=== PATIENT | female | born 1960 | race Caucasian/White ===

== ENCOUNTER 2019-05-14 09:40 | Outpatient (REF) | payer MEDICARE, SELFPAY ==
[2019-05-14 19:22] LABS: Calculated LDL 60; Cholesterol 143 mg/dL (50-200); HDL Cholesterol 45 mg/dL (40-60); Triglyceride 193 mg/dL (30-150)
== END 2019-05-14 10:00 ==
LOC: LBN 09:40
PROVIDERS: PCP Nurse Practitioner Family; Visit Provider Internal Medicine Rheumatology
DX: I10 Essential (primary) hypertension (principal); E78.5 Hyperlipidemia, unspecified; L40.50 Arthropathic psoriasis, unspecified; L40.9 Psoriasis, unspecified; M35.00 Sjogren syndrome, unspecified; M31.6 Other giant cell arteritis; R07.9 Chest pain, unspecified; Z79.899 Other long term (current) drug therapy; Z79.52 Long term (current) use of systemic steroids
CPT/HCPCS: 80061; 83721

== ENCOUNTER 2019-06-18 09:27 | Outpatient (CLI) | payer MEDICARE, SELFPAY ==
--- NOTE | 2019-06-18 09:19 | DI.RAD_ITS ---
SYMPTOM/DIAGNOSIS: B/L HIP PAIN BILATERAL HIPS: No fracture or dislocation is seen. The hip joint spaces are well maintained. There is no significant acetabular spurring. There is minimal spurring at the greater trochanters. Spurring is noted at the S-I joints, left greater than right. IMPRESSION: Degenerative changes of the S-I joints. The hips show no significant degenerative change.
== END 2019-06-18 09:47 ==
PROVIDERS: PCP Nurse Practitioner Family; Referring Provider Nurse Practitioner Family; Visit Provider Orthopaedic Surgery
DX: M25.551 Pain in right hip (principal); M25.552 Pain in left hip; M51.06 Intervertebral disc disorders with myelopathy, lumbar region; M16.11 Unilateral primary osteoarthritis, right hip; L40.50 Arthropathic psoriasis, unspecified
CPT/HCPCS: 73521; 99202; 99203

== ENCOUNTER 2019-06-22 08:06 | Day surgery (SDC) | payer MEDICARE, SELFPAY ==
[2019-06-22 08:52] VITALS: BP 118/67; PULSE 64; RESP 16; TEMP 36.8; O2SAT 98
--- NOTE | 2019-06-22 09:55 | DI.RAD_ITS ---
SYMPTOMS/DIAGNOSIS: RIGHT HIP OSTEOARTHRITIS RIGHT HIP IN THE OR: Fluoroscopy Time: 1.74 seconds/8.5 mGy A single fluoroscopic image shows the right hip. There is a needle overlying the right femoral neck. Please refer to the procedure report for complete details.
[2019-06-22] MEDS: methylPREDNISolone ACETATE 80 MG/ML VIAL (11:25)
--- NOTE | 2019-06-22 11:34 | PDOC.DSDIS_ITS ---
Discharge Plan Disposition Patient Disposition: HOME Condition: Good Discharge Details Reason For Visit: OA (R) HIP Attending Provider: Chung Pham Primary Care Provider: Becky Vides Home Meds and New Rx's Prescriptions: Continued Humira 40 mg/0.8 mL Syringe Kit 50 mg SUBCUT Q2W RF: 0 fluticasone propionate 50 mcg/actuation [place],Suspension 1 spray INTRANASAL BID RF: 0 pramipexole 0.25 mg Tablet 0.25 mg PO QHS RF: 0 lisinopril 10 mg Tablet 10 mg PO DAILY RF: 0 metoprolol succinate 100 mg Tablet Extended Release 24 Hr 100 mg PO DAILY RF: 0 betamethasone dipropionate 0.05 % Cream 1 applic TOPICAL DAILY PRNRF: 0 oxycodone-acetaminophen 5-325 mg Tablet 1 tab PO Q4H PRNRF: 0 Dulera 200-5 mcg/actuation Hfa Aerosol Inhaler 2 puff INHALATION BID RF: 0 oxycodone 5 mg Tablet 5 mg PO BID PRNRF: 0 duloxetine 60 mg Capsule,Delayed Release(Dr/Ec) 60 mg PO DAILY RF: 0 omeprazole 20 mg Capsule,Delayed Release(Dr/Ec) 20 mg PO BID RF: 0 trazodone 100 mg Tablet 200 mg PO QHS RF: 0 montelukast 10 mg Tablet 10 mg PO QHS RF: 0 fexofenadine [Evette Allergy] 180 mg Tablet 180 mg PO DAILY RF: 0 atorvastatin 40 mg Tablet 40 mg PO QHS RF: 0 methotrexate sodium 2.5 mg Tablet 5 mg PO QWEEK RF: 0 olopatadine [Patanol] 0.1 % Drops 1 drp OPHTHALMIC (EYE) BID PRNRF: 0 benzonatate [Tessalon Perles] 100 mg Capsule 100 mg PO BID PRNRF: 0 omega 0-xbs-rlx-fish oil [Fish Oil] 1,000 mg (120 mg-180 mg) Capsule 1 cap PO DAILY RF: 0 folic acid 1 mg Tablet 1 mg PO DAILY RF: 0 Calcium 600 + D(3) 600 mg calcium- 200 unit Capsule 1 cap PO RF: 0 Geritol Complete 16 mg iron- 0.38 mg Tablet 1 tab PO RF: 0 Vit C(ascorb.calcium)(mv-mins) 1,000 mg Powder Effervescent In Packet 1 mg PO RF: 0 lysine 1,000 mg Tablet 1,000 mg PO DAILY RF: 0 Discharge Instructions Additional Instructions: Rest your R hip for 48 hours to allow the medicine I injected into your hip time to be absorbed by the hip joint. Resume activities as tolerated on Sat. Follow up with in one month. Referrals: Chung Pham MD [ [facility] STAFF PHYSICIAN] - (f/u in one month.) Activity:: Activity as Tolerated Diet:: As Tolerated Discharge Orders Discharge Orders: Discharge Order (Routine); Ordered 06/22/19 Ordered By: Chung Pham DS: Diagnosis Discharge Diagnosis (1) Inflammatory osteoarthritis: Status: Chronic
--- NOTE | 2019-06-22 14:15 | ROE_ITS ---
DATE OF PROCEDURE: June 22, 2019 PREOPERATIVE DIAGNOSIS: Probably psoriatic arthritis, right hip. POSTOPERATIVE DIAGNOSIS: Same. PROCEDURE: C-arm guided injection of steroids into the right hip. ANESTHESIA: Local. SURGEON: Chung Pham M.D. INDICATIONS: This is a 58-year-old white female with known psoriasis who is complaining of severe bi lateral hip pain. The right is more painful than the left. Plain x-rays only show mild degenerative changes in her hips. This is not unusual for arthritis caused by connective tissue diseases. The changes are often mild and subtle despite severe pain. I have discussed this fully with the patient. My recommendation is she have an interarticular cortisone injection. If the pain is relieved by th e injection of the anesthetic, that would be confirmation that the hip is the source of her pain. Th e injection also may provide therapeutic benefit by alleviating her pain for an extended period of ti me. If she cannot get significant relief for an extended period of time, she would be a candidate fo r a hip replacement. The risks and complications of the procedure were explained to the patient in d etail and she wished to have me proceed as soon as possible. She also has requested that if she gets good relief from the right side, would like to proceed in having an injection on the left side. PROCEDURE: The patient was taken to the Operating Room on 06/22/19 and was placed supine on the opera ting table. Using the C-arm image intensifier, I placed a ringed forceps just above the inguinal cre ase and centered over the femoral head. I then marked the skin around the ringed forceps. I prepped the skin with alcohol and then placed an 18 gauge needle through the marked area and advanced the 18 gauge spinal needle until I encountered bone. The C-arm image intensifier was then used to confirm that the spinal needle was in the femoral head. I then injected through the spinal needle into the h ip joint with 15 cc's of 0.5% Marcaine with an epinephrine solution and 80 mg of Depo-Medrol. I low quincy the spinal needle and applied pressure to the puncture wound. I then passively moved her right h ip in flexion and extension and internal and external rotation for a couple of minutes to distribute the medication. She reported dramatic relief of pain and much improved motion of her hip. She was d ischarged to the Day Surgery Unit in good condition. The patient was given instructions to rest her right hip for the next 48 hours. She will take ibupro fen of Tylenol as needed for pain. She may resume activities as tolerated on Saturday. She should follow-up in my office in one month.
== END 2019-06-22 12:08 | disposition home or self-care (01) ==
PROVIDERS: PCP Nurse Practitioner Family; Visit Provider Orthopaedic Surgery
PROC: (CPT 20610; principal; 2019-06-22 09:45)
DX: M25.551 Pain in right hip (principal); M25.552 Pain in left hip; L40.9 Psoriasis, unspecified
CPT/HCPCS: 20610; 77002; 73501; J1040

== ENCOUNTER → 2019-07-21 09:02 | Outpatient (BNVA) | payer MEDICARE, SELFPAY | PROVIDERS: PCP Nurse Practitioner Family; Referring Provider Nurse Practitioner Family; Visit Provider Orthopaedic Surgery | DX: M25.551 Pain in right hip (principal); Z98.890 Other specified postprocedural states; L40.9 Psoriasis, unspecified; I10 Essential (primary) hypertension | CPT/HCPCS: 99213 ==

== ENCOUNTER → 2019-07-28 10:16 | Outpatient (BNVA) | payer MEDICARE, SELFPAY | PROVIDERS: PCP Nurse Practitioner Family; Referring Provider Nurse Practitioner Family; Visit Provider Student in an Organized Health Care Education/Training Program | DX: M75.51 Bursitis of right shoulder (principal); M75.52 Bursitis of left shoulder; M75.101 Unspecified rotator cuff tear or rupture of right shoulder, not specified as traumatic; M75.102 Unspecified rotator cuff tear or rupture of left shoulder, not specified as traumatic; R22.32 Localized swelling, mass and lump, left upper limb; M25.511 Pain in right shoulder; M25.512 Pain in left shoulder; M75.21 Bicipital tendinitis, right shoulder; M75.22 Bicipital tendinitis, left shoulder; I10 Essential (primary) hypertension | CPT/HCPCS: 99204; 99215 ==

== ENCOUNTER 2019-08-04 00:14 | Outpatient (CLI) | payer MEDICARE, SELFPAY ==
--- NOTE | 2019-08-04 13:54 | DI.MRI_ITS ---
SYMPTOMS/DIAGNOSIS: PRIOR SYMPTOMS, PERSISTENT PAIN AND WEAKNESS, M25.511 MRI OF THE RIGHT SHOULDER: No plain films are available for comparison. The exam is extremely limited due to patient body habitus. There is limited resolution and poor fat suppression. There is metallic artifact related to previous rotator cuff surgery. There is apparent full-thickness tear with retraction of the supraspinatus tendon. The infraspinatus, subscapularis and biceps tendons appear grossly intact. The labrum is not well seen. The marrow signal appears normal. IMPRESSION: Severely limited exam due to patient body habitus. A full- thickness tear with retraction of the supraspinatus tendon is suspected.
[2019-08-04 15:07] LABS: Estimated GFR 51.38 (mL/min/1.73m2)
== END 2019-08-04 00:34 ==
PROVIDERS: PCP Nurse Practitioner Family; Visit Provider Student in an Organized Health Care Education/Training Program
DX: M25.511 Pain in right shoulder (principal); M75.101 Unspecified rotator cuff tear or rupture of right shoulder, not specified as traumatic; Z98.890 Other specified postprocedural states
CPT/HCPCS: 73221; 82565

== ENCOUNTER 2019-08-11 00:53 | Outpatient (CLI) | payer OTHER, MEDICARE, SELFPAY ==
[2019-08-11] MEDS: Normal Saline Flush 10 ML SYR IVP (09:22)
[2019-08-11] MEDS: Gadoterate meglumine 20 ML VIAL IVP (09:23)
--- NOTE | 2019-08-11 10:10 | DI.MRI_ITS ---
CLINICAL HISTORY: PRIOR ROTATOR CUFF SYMPTOMS, PAIN, WEAKNESS, LT ARM MASS, M25.512 TECHNIQUE: Left upper joint MR without and with contrast was performed. COMPARISON: No exams were available for comparison FINDINGS: Examination was very limited technically due to the patient's body habitus and inability to use extre mity coil in this patient. The patient reportedly has question left arm mass. No mass identified on this study and no gross enhancement seen. However I would not be confident in excluding a mass on t he basis of this examination and if there is high clinical suspicion of a mass, additional evaluatio n with CT should be considered. IMPRESSION:
== END 2019-08-11 01:13 ==
PROVIDERS: PCP Nurse Practitioner Family; Visit Provider Student in an Organized Health Care Education/Training Program
DX: M75.122 Complete rotator cuff tear or rupture of left shoulder, not specified as traumatic (principal); M75.121 Complete rotator cuff tear or rupture of right shoulder, not specified as traumatic; R22.32 Localized swelling, mass and lump, left upper limb; I10 Essential (primary) hypertension; M75.22 Bicipital tendinitis, left shoulder; M75.21 Bicipital tendinitis, right shoulder
CPT/HCPCS: 99215; 73223

== ENCOUNTER 2019-09-15 15:00 | Outpatient (CLI) | payer MEDICARE, SELFPAY ==
--- NOTE | 2019-09-15 14:40 | DI.RAD_ITS ---
EXAM: XR CERVICAL SP MOLINA TRAUMA 2-3V INDICATION: CERVICAL RADICULOPATHY. COMPARISON: No exams were available for comparison TECHNIQUE: 2D digital imaging was performed. FINDINGS: There is no evidence of fracture. The alignment appears normal. There is mild narrowing of the C5-6 disc space and moderate narrowing and endplate osteophytes at C6-7. Facet degenerative changes are seen. There is no prevertebral soft tissue swelling. The airway appears intact. IMPRESSION: Degenerative changes. No acute abnormality.
== END 2019-09-15 15:20 ==
PROVIDERS: PCP Nurse Practitioner Family; Visit Provider Student in an Organized Health Care Education/Training Program
DX: M54.12 Radiculopathy, cervical region (principal); M50.322 Other cervical disc degeneration at C5-C6 level; R22.32 Localized swelling, mass and lump, left upper limb; M75.122 Complete rotator cuff tear or rupture of left shoulder, not specified as traumatic; M75.121 Complete rotator cuff tear or rupture of right shoulder, not specified as traumatic
CPT/HCPCS: 99214; 72040

== ENCOUNTER 2019-09-21 01:52 | Outpatient (CLI) | payer MEDICARE, SELFPAY ==
--- NOTE | 2019-09-21 15:34 | DI.MRI_ITS ---
EXAM: MR CERVICAL SPINE WO CLINICAL HISTORY: cervical radiculopathy M54.12. TECHNIQUE: Multiplanar multisequence MRI was performed. COMPARISON: No exams were available for comparison FINDINGS: There is normal signal in the spinal cord. No evidence of tonsillar ectopia is present. At C7-T1, there is no focal disc herniation central spinal canal or neural foraminal stenosis. At C6-C7, there is prominence of the osteophyte-disc complex. There is mild narrowing of the central spinal canal. Mild narrowing of the neural foramen is seen bilaterally. At C5-C6, there is no focal disc herniation, central spinal canal or neural foraminal stenosis. At C4-5, C3-C4, and C2-C3, there is no evidence of focal disc herniation, central spinal canal, or ne ural foraminal stenosis. The study is limited due to patient body habitus. IMPRESSION: Degenerative changes at C6-C7 causing mild narrowing of the central spinal canal and neural foramen b ilaterally.
== END 2019-09-21 02:12 ==
PROVIDERS: PCP Nurse Practitioner Family; Visit Provider Student in an Organized Health Care Education/Training Program
DX: M54.12 Radiculopathy, cervical region (principal); M47.22 Other spondylosis with radiculopathy, cervical region
CPT/HCPCS: 72141

== ENCOUNTER → 2019-09-30 13:49 | Outpatient (BNVA) | payer MEDICARE, SELFPAY | PROVIDERS: PCP Nurse Practitioner Family; Referring Provider Nurse Practitioner Family; Visit Provider Student in an Organized Health Care Education/Training Program | DX: M75.41 Impingement syndrome of right shoulder (principal); M75.42 Impingement syndrome of left shoulder; M75.22 Bicipital tendinitis, left shoulder; M75.21 Bicipital tendinitis, right shoulder; R22.32 Localized swelling, mass and lump, left upper limb; M75.51 Bursitis of right shoulder; M75.52 Bursitis of left shoulder; M75.121 Complete rotator cuff tear or rupture of right shoulder, not specified as traumatic; M79.7 Fibromyalgia; M35.3 Polymyalgia rheumatica | CPT/HCPCS: 99215 ==

== ENCOUNTER 2019-10-27 14:37 | Outpatient (CLI) | payer MEDICARE, SELFPAY ==
--- NOTE | 2019-10-27 14:49 | DI.RAD_ITS ---
EXAM: XR SHOULDER RT COMPLETE 2+V INDICATION: right shoulder pain. COMPARISON: No exams were available for comparison TECHNIQUE: 2D digital imaging was performed. FINDINGS: There are degenerative changes seen at the acromioclavicular joint. The glenohumeral joint appears f airly well maintained. Mild degenerative changes are seen at the greater tuberosity. There is an en thesophyte at the lateral aspect of the acromion. No acute fracture or dislocation is present. The soft tissues are unremarkable. IMPRESSION: Mild degenerative changes of the right shoulder.
--- NOTE | 2019-10-27 14:52 | DI.RAD_ITS ---
EXAM: XR SHOULDER LT COMPLETE 2+V INDICATION: left shoulder pain. COMPARISON: XR SHOULDER RT COMPLETE 2+V from 10/27/2019 TECHNIQUE: 2D digital imaging was performed. FINDINGS: Mild degenerative changes are seen at the acromioclavicular joint. The glenohumeral joint appears we ll maintained. The bones are intact and normally mineralized. The soft tissues are unremarkable. IMPRESSION: Mild degenerative changes of the acromioclavicular joint.
--- NOTE | 2019-10-27 15:04 | DI.RAD_ITS ---
EXAM: XR JOINT SURVEY 1V INDICATION: left SC joint discomfort. COMPARISON: No exams were available for comparison TECHNIQUE: 2D digital imaging was performed. FINDINGS: Two AP lordotic views were performed. The sternoclavicular joints are not well visualized. There is no evidence of fracture or gross evidence of malalignment. IMPRESSION: Limited exam. No gross evidence of fracture.
== END 2019-10-27 14:57 ==
PROVIDERS: PCP Nurse Practitioner Family; Referring Provider Nurse Practitioner Family; Visit Provider Student in an Organized Health Care Education/Training Program
DX: M75.22 Bicipital tendinitis, left shoulder; M35.3 Polymyalgia rheumatica; M75.41 Impingement syndrome of right shoulder; M75.42 Impingement syndrome of left shoulder; M75.121 Complete rotator cuff tear or rupture of right shoulder, not specified as traumatic; M75.122 Complete rotator cuff tear or rupture of left shoulder, not specified as traumatic; R22.32 Localized swelling, mass and lump, left upper limb
CPT/HCPCS: 99214; 73030; 77073

== ENCOUNTER 2019-12-02 09:54 | Outpatient (CLI) | payer MEDICARE, SELFPAY | END 2019-12-02 10:14 | PROVIDERS: PCP Nurse Practitioner Family; Visit Provider Student in an Organized Health Care Education/Training Program | DX: M75.41 Impingement syndrome of right shoulder (principal); M75.42 Impingement syndrome of left shoulder; M75.22 Bicipital tendinitis, left shoulder; M75.21 Bicipital tendinitis, right shoulder; R22.32 Localized swelling, mass and lump, left upper limb; M75.51 Bursitis of right shoulder; M75.52 Bursitis of left shoulder; M75.121 Complete rotator cuff tear or rupture of right shoulder, not specified as traumatic; M75.122 Complete rotator cuff tear or rupture of left shoulder, not specified as traumatic; M79.7 Fibromyalgia; M35.3 Polymyalgia rheumatica; Z79.899 Other long term (current) drug therapy | CPT/HCPCS: 99214 ==

== ENCOUNTER 2019-12-10 06:10 | Day surgery (SDC) | payer MEDICARE, SELFPAY ==
[2019-12-02 10:13] VITALS: BP 105/68; PULSE 82; O2SAT 98
[2019-12-10] VITALS (7 sets, daily range): BP systolic 92–130; BP diastolic 39–66; PULSE 81–87; RESP 15–19; TEMP 36.6; O2SAT 96–100
[2019-12-10] MEDS: Lactated Ringers 1,000 ML 100 ML IV (06:39)
[2019-12-10] MEDS: Bupivacaine 0.5% Pres-Free 30 ML VIAL (07:24)
[2019-12-10] MEDS: Bupivacaine LIPOSOME/PF 133 MG/10 ML VIAL IJ (07:25)
[2019-12-10] MEDS: ceFAZolin 3,000 MG in Normal Saline 100 ML 200 MG IVPB (07:58)
[2019-12-10] MEDS: EPINEPHrine 30 MG/30 ML VIAL (09:48)
--- NOTE | 2019-12-10 10:17 | W.PM.DSUDISC ---
Discharge Plan Disposition Patient Disposition: HOME Condition: Stable Discharge Details Reason For Visit: RCT,LHB TENDINNOP,BURSITIS,IMPINGEMENT Attending Provider: Nabeel Etienne Primary Care Provider: Becky Vides Home Meds and New Rx's Prescriptions: New aspirin 81 mg tablet,delayed release (DR/EC) 81 mg PO DAILY 14 Days Qty: 14 RF: 0 ondansetron 4 mg tablet,disintegrating 4 mg PO Q6H PRN (Reason: nausea or vomiting) Qty: 5 RF: 0 oxycodone 5 mg tablet 5 - 10 mg PO Q4H PRN (Reason: moderate to severe pain) Qty: 22 RF: 0 Continued diazepam 5 mg tablet 5 mg PO ONCE PRN (Reason: anxiety) Qty: 2 RF: 0 diclofenac sodium 1 % gel 2 gm TP QID RF: 0 Humira 40 mg/0.8 mL Syringe Kit 50 mg SUBCUT Q2W RF: 0 fluticasone propionate 50 mcg/actuation [place],Suspension 1 spray INTRANASAL BID RF: 0 pramipexole 0.25 mg Tablet 0.25 mg PO QHS RF: 0 betamethasone dipropionate 0.05 % Cream 1 applic TOPICAL DAILY PRNRF: 0 Dulera 200-5 mcg/actuation Hfa Aerosol Inhaler 2 puff INHALATION BID RF: 0 duloxetine 60 mg Capsule,Delayed Release(Dr/Ec) 60 mg PO DAILY RF: 0 omeprazole 20 mg Capsule,Delayed Release(Dr/Ec) 20 mg PO BID RF: 0 trazodone 100 mg Tablet 200 mg PO QHS RF: 0 montelukast 10 mg Tablet 10 mg PO QHS RF: 0 fexofenadine [Evette Allergy] 180 mg Tablet 180 mg PO DAILY RF: 0 atorvastatin 40 mg Tablet 40 mg PO QHS RF: 0 olopatadine [Patanol] 0.1 % Drops 1 drp OPHTHALMIC (EYE) BID PRNRF: 0 benzonatate [Tessalon Perles] 100 mg Capsule 100 mg PO BID PRNRF: 0 Calcium 600 + D(3) 600 mg calcium- 200 unit Capsule 1 cap PO DAILY RF: 0 Geritol Complete 16 mg iron- 0.38 mg Tablet 1 tab PO DAILY RF: 0 Vit C(ascorb.calcium)(mv-mins) 1,000 mg Powder Effervescent In Packet 1 mg PO DAILY RF: 0 lysine 1,000 mg Tablet 1,000 mg PO DAILY RF: 0 methotrexate sodium 2.5 mg tablet 7.5 mg PO QWEEK RF: 0 folic acid 1 mg tablet 3 mg PO DAILY RF: 0 meloxicam 15 mg Tablet 15 mg PO DAILY RF: 0 Discontinued diazepam [Valium] 5 mg tablet 5 mg PO ONCE PRN (Reason: Claustrophobia) Qty: 2 RF: 0 oxycodone-acetaminophen 5-325 mg Tablet 1 tab PO Q4H PRNRF: 0 oxycodone 5 mg Tablet 5 mg PO BID PRNRF: 0 Discharge Instructions Additional Instructions: Surgery: Shoulder arthroscopy with extensive debridement, biceps tenotomy, revision subacromial decompression, removal of hardware, and distal clavicle excision Activity: You may use your arm for activities of daily living. Encourage early stretching and range of motion in all directions. No heavy lifting away from body or overhead for 6-8 weeks. A physical therapy prescription will be provided separately today. Prescriptions: Aspirin 81 mg take 1 daily to prevent a blood clot for 2 weeks Oxycodone 5 mg take 1-2 every 4-6 hours as needed for severe pain You may use [id number] Tylenol (acetaminophen) as needed for mild pain. Resume home meloxicam dose for swelling, pain, and arthritic pain These pain medications may be taken all at once or in different combinations as needed. Also, recommend Colace (docusate) as a stool softener as surgery and pain medicine cause constipation. Dressings: Leave dressing in place for 2-3 days. May then remove and leave open to air or cover incisions with Band-Aids. May shower after 5 days. Follow-up: 10-[address] Etienne Please call the office during business hours with any questions or concerns. Let us know right away if you develop any redness, drainage, fevers, chest pain, or trouble breathing. Do not drink alcohol or drive for at least 24 hours after anesthesia. Referrals: Nabeel Etienne MD [ [facility] STAFF PHYSICIAN] - DS: Diagnosis Discharge Diagnosis (1) Tendonitis of long head of biceps brachii of right shoulder: Status: Acute (2) Rotator cuff tear, right: Status: Acute (3) Bilateral shoulder bursitis: Status: Acute (4) Impingement syndrome of right shoulder: Status: Acute (5) Arthritis of right acromioclavicular joint: Status: Acute
--- NOTE | 2019-12-10 10:36 | W.PM.OP ---
Date of service: 12/10/19 Time of Service: 10:18 Operative Note Operative Note DATE OF PROCEDURE: 12/10/19 PRE-OP DIAGNOSIS: Right: 1. Rotator cuff tear 2. LHB tendinopathy 3. SLAP tear 4. Bursitis 5. Impingement POST-OP DIAGNOSIS: other Right: 1. Failed previous supraspinatus repair 2. LHB tendinopathy 3. SLAP tear 4. Bursitis 5. Impingement 6. Failed previous acromioplasty 7. No evidence of previous distal clavicle excision PROCEDURE: Right: 1. Extensive debridement, CPT# 27564. This involved using arthroscopic hand instruments, power instruments, and radiofrequency instruments to debride areas of labral tearing, synovitis, and chondromalacia within the glenohumeral joint anteriorly and posteriorly as well as perform an arthroscopic biceps tenotomy with arthroscopic scissors, CPT# 15295. 2. Removal of hardware, CPT# 83241. This involved removing permanent sutures from previous failed rotator cuff repair that was frayed and partially knotted and distributed about the greater tuberosity and supraspinatus using hand instruments through a separate portal incision. 3. Subacromial decompression with revision acromioplasty, CPT# 58657. This involved using arthroscopic power instruments and a radiofrequency wand to complete a up acromial scar removal, bursectomy and a significant bone spur that had been left on the undersurface of the acromion. 4. Arthroscopic distal clavicle excision, CPT# 59932. There was significant distal clavicle undersurface bone spur that was grossly impinging on the rotator cuff. This was initially coplaned arthroscopically using power bur and shaver to match the acromioplasty and then approximately 5 mm of distal clavicle bone was excised from the distal end of the clavicle using an arthroscopic blair. The refinery operator assistant was medically required in order to help assist in techniques above, which require positioning the arm, holding the arthroscope, and manipulating 2 to 4 instruments and sutures at the same time. This cannot be done without the help of an experienced refinery operator assistant. SURGEON: Nabeel Etienne BOTTLE WASHING MACHINE OPERATOR: Michael Narayanan ANESTHESIA: GETA and regional ESTIMATED BLOOD LOSS: 10 PATHOLOGY: other (Loose remnant permanent suture from prior failed rotator cuff sent for Gram stain and culture to be held for 21 days for Propionibacterium acnes) COMPLICATIONS: None Patient was transported to: PACU Patient's condition: stable Implants: None Indications: The patient was diagnosed with the above conditions and appropriately indicated for surgical intervention. Please see complete medical record for details. Findings: Exam under anesthesia: Full symmetric range of motion no instability Glenohumeral joint: Significant anterior labral tearing as well as SLAP tear. Extensive anterior superior and posterior synovitis. Partial upper border subscapularis tear but largely intact. Partial supraspinatus about 25-50% of the tendon full-thickness and partial-thickness in spots around previous failed rotator cuff repair anchor with what looked like 2 sets of permanent suture in various stages of fraying and knotting in the supraspinatus. Intact infraspinatus and teres minor. Mild central glenoid chondromalacia. Mild chondromalacia about a disrupted biceps sling and supraspinatus tear. Subacromial space: Extensive bursitis and scarring from previous open deltoid incision. Significant sharp undersurface acromion bone spur. Extremely large impinging on rotator cuff distal clavicle and acromioclavicular joint arthrosis. Procedure Description: The patient was taken to the operating room and transferred to the operating room table. General anesthesia was induced. While under anesthesia, bilateral shoulders were examined. The patient was positioned in the beachchair position. All bony prominences were well-padded. Preoperative antibiotics were administered. The shoulder was prepped and draped in the usual sterile fashion. The correct patient, procedure, and side of the procedure were all verified prior to incision. Starting through the posterior portal a standard complete diagnostic arthroscopy was performed of the glenohumeral joint including inspection of the long head of the biceps, anterior and superior labrum, subscapularis tendon, supraspinatus and infraspinatus tendons, and axillary recess. The glenoid and humeral head cartilage as well as the posterior labrum were inspected from an anterior viewing portal. Significant findings noted above. The biceps tendon was tenotomized from the labrum using arthroscopic scissors. An extensive debridement was performed anteriorly superiorly and posteriorly through anterior and posterior anchors using hand and power instruments. Failed arthroscopic previous repair was identified along the greater tuberosity with sutures some still attached barely to an anchor and others distributed through the supraspinatus. An anterior portal was established and a 7 mm rigid cannula placed. Through this cannula using a pituitary instrument suture pieces were freed from tissue remnants and removed and placed into a sterile specimen cup for pathology. A 5.0 mm ultra aggressive shaver was used to remove finer pieces of suture material that were in soft tissue as well as remove the suture that was attached to the bone down to a smooth surface flush with the bone. The previous anchor and screw was not visible. There is no obvious evidence of infection except the fact that the sutures were loose and very weak. The partial subscapularis and supraspinatus tears were debrided. Starting through the posterior portal, the arthroscope was directed into the subacromial space. A lateral 50 yard line lateral portal was created. A combination of power instruments and a radiofrequency ablator were used to debride bursitis anteriorly, posteriorly, and laterally as well as expose and smooth bone spurring on the undersurface of the acromion. The coracoacromial ligament was released. The bursectomy was completed viewing laterally and working from posteriorly and the rotator cuff was thoroughly inspected with findings noted above. Once the revision acromioplasty was done as well as extensive bursectomy and removal of prior scarring from the open previous deltoid approach to the rotator cuff repair it was clear that the distal clavicle excision had not previously been performed as suspected given radiographic findings. The extremely large impressive distal clavicle that was impinging on the rotator cuff was approached arthroscopically through the lateral portal and co-planed to match the acromioplasty. The anterior portal was then used to finish co-planing the distal undersurface of the clavicle as well as remove approximately 5 mm of distal clavicle bone to complete the distal clavicle excision. Appropriate co-planing and distal clavicle excision was confirmed on lateral and anterior viewing portals as well as directly verified by applying manual blood pressure to the distal clavicle. The shoulder was drained of arthroscopic fluid. All portal sites were copiously irrigated. These incisions were closed using 3-0 Monocryl in a buried fashion, covered with Steri-Strips, Xeroform, dry gauze, and ABDs. The dressings were covered and secured with Medipore tape. The operative extremity was placed into a sling for immobilization. The patient awoke from anesthesia without complication and was transferred to the recovery room in a stable condition.
== END 2019-12-10 12:41 | disposition home or self-care (01) ==
PROVIDERS: PCP Nurse Practitioner Family; Visit Provider Student in an Organized Health Care Education/Training Program
PROC: (CPT 29805; principal; 2019-12-10 07:30)
DX: T85.612A Breakdown (mechanical) of permanent sutures, initial encounter (principal); M65.811 Other synovitis and tenosynovitis, right shoulder; M75.111 Incomplete rotator cuff tear or rupture of right shoulder, not specified as traumatic; M75.81 Other shoulder lesions, right shoulder; M94.211 Chondromalacia, right shoulder; M75.41 Impingement syndrome of right shoulder; M75.51 Bursitis of right shoulder; Y83.8 Other surgical procedures as the cause of abnormal reaction of the patient, or of later complication, without mention of misadventure at the time of the procedure; G89.18 Other acute postprocedural pain; M79.7 Fibromyalgia; M35.3 Polymyalgia rheumatica; E66.01 Morbid (severe) obesity due to excess calories; Z79.899 Other long term (current) drug therapy; G47.33 Obstructive sleep apnea (adult) (pediatric); J45.909 Unspecified asthma, uncomplicated; Z68.42 Body mass index [BMI] 45.0-49.9, adult
CPT/HCPCS: 29819; 29826; 29823; 29824; 76942; 87070; 87075; 87205; J0690; J1100; J2001; J2250; J2405; L3670

== ENCOUNTER → 2019-12-22 12:55 | Outpatient (BNVA) | payer MEDICARE, SELFPAY | PROVIDERS: PCP Nurse Practitioner Family; Referring Provider Nurse Practitioner Family; Visit Provider Student in an Organized Health Care Education/Training Program | DX: Z47.89 Encounter for other orthopedic aftercare (principal) ==

== ENCOUNTER → 2020-06-07 09:58 | Outpatient (BNVA) | payer MEDICARE, SELFPAY | PROVIDERS: PCP Nurse Practitioner Family; Referring Provider Nurse Practitioner Family; Visit Provider Student in an Organized Health Care Education/Training Program | DX: M19.011 Primary osteoarthritis, right shoulder (principal); M75.121 Complete rotator cuff tear or rupture of right shoulder, not specified as traumatic; M75.21 Bicipital tendinitis, right shoulder; M75.41 Impingement syndrome of right shoulder; Z98.890 Other specified postprocedural states; M75.42 Impingement syndrome of left shoulder; M75.22 Bicipital tendinitis, left shoulder; M75.122 Complete rotator cuff tear or rupture of left shoulder, not specified as traumatic; M75.51 Bursitis of right shoulder; M75.52 Bursitis of left shoulder | CPT/HCPCS: 99214 ==

== ENCOUNTER 2020-07-21 14:41 | Outpatient (REF) | payer MEDICARE, SELFPAY ==
[2020-07-21 19:16] LABS: Abs Immature Grans 0.02 10^3/uL (0.0-0.06); Absolute Basophil Count 0.07 10^3/uL (0.0-0.2); Absolute Eosinophil Count 0.21 10^3/uL (0.0-0.7); Absolute Lymphocyte Count 2.13 10^3/uL (1.2-3.4); Absolute Monocyte Count 0.42 10^3/uL (0.1-0.8); Absolute Neutrophil Count 3.49 10^3/uL (1.2-6.7); Basophils % 1.1; Eosinophils % 3.3; HGB 11.3 g/dL (11.2-15.7); Immature Grans % 0.3; Lymphocytes % 33.6; MCH 31.7 pg (27.0-33.0); MCHC 32.3 % (32.0-36.0); MCV 98.3 fL (80-95); MPV 9.5 fL (8.0-11.0); Monocytes % 6.6; Neutrophils % 55.1; Nucleated RBC 0 %; Platelet Count 352 10^3/uL (130-400); RBC 3.56 10^6/uL (3.93-5.22); RDW 14.1 % (11.7-14.6); RDW-SD 50.8 fL; WBC 6.34 10^3/uL (4.4-10.8)
[2020-07-21 19:31] LABS: ALT 41 U/L (14-59); AST 23 U/L (15-37); Alkaline Phosphatase 72 U/L (46-116); Anion Gap 8.4 mmol/L (3-11); BUN 20 mg/dL (7-18); Bilirubin, Total 0.7 mg/dL (0.2-1.0); CO2 29.6 mmol/L (21.0-32.0); CREATININE 0.97 mg/dL (0.55-1.02); Calcium 9.1 mg/dL (8.5-10.1); Chloride 103 mmol/L (98-107); Estimated GFR 59.19 (mL/min/1.73m2); Glucose 85 mg/dL (74-106); Potassium 3.8 mmol/L (3.5-5.1); Sodium 141 mmol/L (136-145)
== END 2020-07-21 15:01 ==
LOC: LBN 14:41
PROVIDERS: PCP Nurse Practitioner Family; Visit Provider Internal Medicine Rheumatology
DX: L40.50 Arthropathic psoriasis, unspecified (principal); L40.9 Psoriasis, unspecified; M31.6 Other giant cell arteritis; M35.00 Sjogren syndrome, unspecified; Z79.52 Long term (current) use of systemic steroids; Z79.899 Other long term (current) drug therapy
CPT/HCPCS: 80053; 85025

== ENCOUNTER 2020-09-09 12:18 | Outpatient (REF) | payer MEDICARE, SELFPAY ==
[2020-09-09 19:00] LABS: Abs Immature Grans 0.02 10^3/uL (0.0-0.06); Absolute Basophil Count 0.07 10^3/uL (0.0-0.2); Absolute Eosinophil Count 0.21 10^3/uL (0.0-0.7); Absolute Lymphocyte Count 1.71 10^3/uL (1.2-3.4); Absolute Monocyte Count 0.33 10^3/uL (0.1-0.8); Absolute Neutrophil Count 3.35 10^3/uL (1.2-6.7); Basophils % 1.2; Eosinophils % 3.7; HCT 33.9 % (36.0-46.0); HGB 10.9 g/dL (11.2-15.7); Immature Grans % 0.4; Lymphocytes % 30.1; MCH 31.5 pg (27.0-33.0); MCHC 32.2 % (32.0-36.0); MPV 9.6 fL (8.0-11.0); Monocytes % 5.8; Neutrophils % 58.8; Nucleated RBC 0 %; Platelet Count 334 10^3/uL (130-400); RBC 3.46 10^6/uL (3.93-5.22); RDW-SD 53.6 fL; WBC 5.69 10^3/uL (4.4-10.8)
[2020-09-09 19:11] LABS: ALT 38 U/L (14-59); AST 24 U/L (15-37); Albumin 3.9 g/dL (3.4-5.0); Alkaline Phosphatase 75 U/L (46-116); Anion Gap 6.4 mmol/L (3-11); BUN 22 mg/dL (7-18); Bilirubin, Total 0.6 mg/dL (0.2-1.0); C-Reactive Protein 0.11 mg/dL (0.0-0.3); CO2 26.6 mmol/L (21.0-32.0); CREATININE 1.08 mg/dL (0.55-1.02); Chloride 103 mmol/L (98-107); Estimated GFR 52.29 (mL/min/1.73m2); Glucose 145 mg/dL (74-106); Potassium 3.8 mmol/L (3.5-5.1); Sodium 136 mmol/L (136-145); Total Protein 6.8 g/dL (6.4-8.2)
[2020-09-09 19:38] LABS: ESR 19 mm/hr (0-30)
== END 2020-09-09 12:38 ==
LOC: LBN 12:18
PROVIDERS: PCP Nurse Practitioner Family; Visit Provider Internal Medicine Rheumatology
DX: L40.50 Arthropathic psoriasis, unspecified (principal); M35.01 Sjogren syndrome with keratoconjunctivitis; L40.9 Psoriasis, unspecified; Z79.899 Other long term (current) drug therapy; Z79.52 Long term (current) use of systemic steroids; M31.6 Other giant cell arteritis
CPT/HCPCS: 80053; 85652; 85025; 86140

== ENCOUNTER → 2020-10-11 10:51 | Outpatient (BNVA) | payer MEDICARE, SELFPAY | PROVIDERS: PCP Nurse Practitioner Family; Referring Provider Nurse Practitioner Family; Visit Provider Student in an Organized Health Care Education/Training Program | DX: Z47.89 Encounter for other orthopedic aftercare (principal); M25.511 Pain in right shoulder; M35.3 Polymyalgia rheumatica; I10 Essential (primary) hypertension | CPT/HCPCS: 99213 ==

== ENCOUNTER 2021-02-01 20:44 | Outpatient (REF) | payer MEDICARE, SELFPAY ==
[2021-02-01 20:33] LABS: Abs Immature Grans 0.02 10^3/uL (0.0-0.06); Absolute Basophil Count 0.05 10^3/uL (0.0-0.2); Absolute Eosinophil Count 0.11 10^3/uL (0.0-0.7); Absolute Lymphocyte Count 1.52 10^3/uL (1.2-3.4); Absolute Monocyte Count 0.32 10^3/uL (0.1-0.8); Absolute Neutrophil Count 3.54 10^3/uL (1.2-6.7); Basophils % 0.9; HCT 37.6 % (36.0-46.0); HGB 12.5 g/dL (11.2-15.7); Immature Grans % 0.4; Lymphocytes % 27.3; MCH 31.9 pg (27.0-33.0); MCHC 33.2 % (32.0-36.0); MCV 95.9 fL (80-95); MPV 9.3 fL (8.0-11.0); Monocytes % 5.8; Neutrophils % 63.6; Nucleated RBC 0 %; Platelet Count 384 10^3/uL (130-400); RBC 3.92 10^6/uL (3.93-5.22); RDW 14.7 % (11.7-14.6); RDW-SD 51.7 fL; WBC 5.56 10^3/uL (4.4-10.8)
[2021-02-01 21:08] LABS: Iron 76 ug/dL (50-170); Total Iron Binding Capacity 286 ug/dL (250-450); Transferrin Sat 27 % (15-50)
[2021-02-01 21:31] LABS: ALT 53 U/L (14-59); AST 29 U/L (15-37); Albumin 3.9 g/dL (3.4-5.0); Alkaline Phosphatase 84 U/L (46-116); Anion Gap 8.8 mmol/L (3-11); BUN 16 mg/dL (7-18); Bilirubin, Total 0.5 mg/dL (0.2-1.0); CO2 27.2 mmol/L (21.0-32.0); CREATININE 1.2 mg/dL (0.55-1.02); Calcium 9.3 mg/dL (8.5-10.1); Chloride 104 mmol/L (98-107); Estimated GFR 46.14 (mL/min/1.73m2); Ferritin 75 ng/mL (8-252); Glucose 126 mg/dL (74-106); Potassium 4.2 mmol/L (3.5-5.1); Sodium 140 mmol/L (136-145); Total Protein 7.3 g/dL (6.4-8.2); Vitamin B12 1004 pg/mL (193-986)
[2021-02-01 21:33] LABS: Folate > 20.0 ng/mL (8.6-20.0)
== END 2021-02-01 20:45 | disposition home or self-care (01) ==
LOC: NCHCN 20:44
PROVIDERS: Internal Medicine Rheumatology; PCP Nurse Practitioner Family; Visit Provider Family Medicine
DX: D53.9 Nutritional anemia, unspecified (principal); R73.03 Prediabetes; L40.50 Arthropathic psoriasis, unspecified; Z79.899 Other long term (current) drug therapy; M35.01 Sjogren syndrome with keratoconjunctivitis; M31.6 Other giant cell arteritis; M35.00 Sjogren syndrome, unspecified; Z79.52 Long term (current) use of systemic steroids
CPT/HCPCS: 80053; 82607; 82728; 82746; 83540; 83550; 85025

== ENCOUNTER 2021-03-02 15:04 | Outpatient (REF) | payer MEDICARE, SELFPAY ==
[2021-03-02 16:30] LABS: Calculated LDL 116 mg/dL (<100); Cholesterol 189 mg/dL (<200); HDL Cholesterol 44 mg/dL (40-60); Triglyceride 147 mg/dL (<150)
== END 2021-03-02 15:05 | disposition home or self-care (01) ==
LOC: NCHCN 15:04
PROVIDERS: PCP Nurse Practitioner Family; Visit Provider Nurse Practitioner Family
DX: E78.5 Hyperlipidemia, unspecified (principal)
CPT/HCPCS: 80061

== ENCOUNTER → 2021-04-12 12:54 | Outpatient (BNVA) | payer MEDICARE, SELFPAY | PROVIDERS: PCP Nurse Practitioner Family; Referring Provider Nurse Practitioner Family; Visit Provider Student in an Organized Health Care Education/Training Program | DX: M75.22 Bicipital tendinitis, left shoulder (principal); M35.3 Polymyalgia rheumatica; M79.7 Fibromyalgia; Z98.890 Other specified postprocedural states | CPT/HCPCS: 99213 ==

== ENCOUNTER 2021-06-02 12:35 | Outpatient (CLI) | payer MEDICARE, SELFPAY ==
--- NOTE | 2021-06-19 08:49 | W.ZIOMONITOR ---
Date of service: 06/19/21 Time of Service: 08:49 14 Day Prevocational/Rehabilitation Counselor Referring Provider:: Gilbert Indications:: Afib Note: There is a 14-day monitor with indication of atrial fibrillation. Patient was in normal sinus rhythm for the majority the recording with an average heart rate of 89 bpm. There were 39 episodes of supraventricular tachycardia with the longest lasting 56 beats. 10 of these episodes were symptomatic. There were no episodes of ventricular tachycardia and rare PACs/PVCs. There were no episodes of atrial fibrillation, no pauses greater than 3 seconds and no evidence of high degree heart block. There were 26 patient triggered events. 10 of these were associated with supraventricular tachycardia as above. 16 of these were not associated with any arrhythmia.
== END 2021-06-02 12:36 | disposition home or self-care (01) ==
LOC: RT 12:47
PROVIDERS: PCP Student in an Organized Health Care Education/Training Program; Visit Provider Student in an Organized Health Care Education/Training Program
DX: I49.8 Other specified cardiac arrhythmias (principal)
CPT/HCPCS: 93246

== ENCOUNTER 2021-06-19 08:49 | Outpatient (CLI) | payer MEDICARE, SELFPAY | END 2021-06-19 08:50 | LOC: CARDO 06-20 09:33 | PROVIDERS: PCP Student in an Organized Health Care Education/Training Program; Referring Provider Student in an Organized Health Care Education/Training Program; Visit Provider Internal Medicine Cardiovascular Disease | DX: I49.8 Other specified cardiac arrhythmias (principal); I47.1 Supraventricular tachycardia | CPT/HCPCS: 93248 ==

== ENCOUNTER 2021-07-20 09:01 | Outpatient (CLI) | payer MEDICARE, SELFPAY ==
--- NOTE | 2021-07-20 08:30 | DI.RAD_ITS ---
Exam(s) XR HIP RT COMPLETE AP PELVIS EXAM: XR HIP RT COMPLETE AP PELVIS CLINICAL HISTORY: pain. TECHNIQUE: 2D digital imaging was performed. COMPARISON: CR XR hip pelvis adult Bl from 06/18/2019 FINDINGS: No evidence of pelvic nor hip fracture. No narrowing of the hip joint spaces. Additional lateral vi ew of the right hip was also performed and reveals no significant narrowing. No prominent osteophyte s. No osseous lesions IMPRESSION: DATA REPOSITORY: RADIATION DOSE DELIVERED:
--- NOTE | 2021-07-20 08:30 | DI.RAD_ITS ---
Exam(s) XR HIP LT 1V EXAM: XR HIP LT 1V CLINICAL HISTORY: pain. TECHNIQUE: 2D digital imaging was performed. COMPARISON: CR XR HIP RT COMPLETE AP PELVIS from 07/20/2021 FINDINGS: No evidence of pelvic nor hip fracture. Hardware from lumbar spine seen in the upper aspect the sacr um on the superior aspect of the field of view of the pelvic image. No osseous lesions. Hips appear unremarkable. IMPRESSION: DATA REPOSITORY: RADIATION DOSE DELIVERED:
== END 2021-07-20 09:02 | disposition home or self-care (01) ==
LOC: DIORS 09:02
PROVIDERS: PCP Student in an Organized Health Care Education/Training Program; Referring Provider Student in an Organized Health Care Education/Training Program; Visit Provider Student in an Organized Health Care Education/Training Program
DX: M25.551 Pain in right hip (principal); M25.552 Pain in left hip; M70.61 Trochanteric bursitis, right hip; M70.62 Trochanteric bursitis, left hip
CPT/HCPCS: 99215; 73501; 73502

== ENCOUNTER → 2021-09-06 03:15 | Outpatient (CLI) | payer MEDICARE, SELFPAY ==
--- NOTE | 2021-09-06 | DI.MRI_ITS ---
Exam(s) MR LOWER JOINT BI WO EXAM: MR LOWER JOINT BI WO CLINICAL HISTORY: CHRONIC BILAT HIP PAIN,BUTTOCK PAIN,SJOGRENS SYNDROME,PSORIASIS,M79.18, TECHNIQUE: Multiplanar multisequence MRI of the knee was performed. COMPARISON: CR XR HIP LT 1V from 07/20/2021 CR XR HIP LT 1V from 07/20/2021 FINDINGS: Hardware noted in the lower lumbar spine and upper sacrum. OSSEOUS: No evidence of pelvic nor hip fractures. No stress fractures. No evidence of avascular nec rosis. No erosions. No hip joint effusions. There is no prominent signal abnormality in the soft t issues lateral to the greater trochanters to suggest tendonitis/bursitis. No prominent signal abnorm ality at the level of the ischial tuberosities-hamstrings insertions. ARTICULATIONS: Minimal degenerative changes. No osteophytes. There are no degenerative subarticular cysts. No hypertrophy of the para-articular ligamentum teres. No obvious labral tears. No evidenc e of paralabral cyst. SOFT TISSUES: No evidence of intra nor inter muscular signal abnormality. No atrophy. The uterus is noted to be surgically absent. There are no abnormal adnexal masses. IMPRESSION: 1. Both hips appear unremarkable. No stress fracture or avascular necrosis. No osseous lesions nor erosions. No joint effusions. 2. No obvious labral tear nor paralabral cyst. DATA REPOSITORY:
== END ==
PROVIDERS: PCP Student in an Organized Health Care Education/Training Program; Visit Provider Internal Medicine Rheumatology
DX: M25.551 Pain in right hip (principal); M25.552 Pain in left hip; G89.29 Other chronic pain; M79.18 Myalgia, other site; M35.00 Sjogren syndrome, unspecified; L40.50 Arthropathic psoriasis, unspecified; L40.9 Psoriasis, unspecified
CPT/HCPCS: 73721

== ENCOUNTER 2021-11-06 17:37 | Outpatient (REF) | payer MEDICARE, SELFPAY ==
[2021-11-06 20:48] LABS: Abs Immature Grans 0.02 10^3/uL (0.0-0.06); Absolute Basophil Count 0.06 10^3/uL (0.0-0.2); Absolute Eosinophil Count 0.07 10^3/uL (0.0-0.7); Absolute Lymphocyte Count 1.59 10^3/uL (1.2-3.4); Absolute Monocyte Count 0.46 10^3/uL (0.1-0.8); Absolute Neutrophil Count 2.83 10^3/uL (1.2-6.7); Basophils % 1.2; ESR 6 mm/hr (0-30); Eosinophils % 1.4; HCT 39.3 % (36.0-46.0); HGB 12.9 g/dL (11.2-15.7); Immature Grans % 0.4; Lymphocytes % 31.6; MCH 31.2 pg (27.0-33.0); MCHC 32.8 % (32.0-36.0); MCV 94.9 fL (80-95); MPV 9.1 fL (8.0-11.0); Monocytes % 9.1; Neutrophils % 56.3; Nucleated RBC 0 %; Platelet Count 398 10^3/uL (130-400); RBC 4.14 10^6/uL (3.93-5.22); RDW 13.8 % (11.7-14.6); RDW-SD 48.2 fL; WBC 5.03 10^3/uL (4.4-10.8)
[2021-11-06 21:10] LABS: ALT 45 U/L (14-59); AST 25 U/L (15-37); Alkaline Phosphatase 79 U/L (46-116); Anion Gap 9.6 mmol/L (3-11); BUN 15 mg/dL (7-18); Bilirubin, Total 0.4 mg/dL (0.2-1.0); C-Reactive Protein 0.05 mg/dL (0.0-0.3); CO2 26.4 mmol/L (21.0-32.0); Calcium 9.1 mg/dL (8.5-10.1); Chloride 104 mmol/L (98-107); Estimated GFR 56.75 (mL/min/1.73m2); Glucose 95 mg/dL (74-106); Potassium 4.3 mmol/L (3.5-5.1); Sodium 140 mmol/L (136-145); Total Protein 7.2 g/dL (6.4-8.2)
== END 2021-11-06 17:38 | disposition home or self-care (01) ==
LOC: LBN 17:37
PROVIDERS: PCP Student in an Organized Health Care Education/Training Program; Visit Provider Internal Medicine Rheumatology
DX: L40.50 Arthropathic psoriasis, unspecified (principal); M31.6 Other giant cell arteritis; M35.01 Sjogren syndrome with keratoconjunctivitis; Z79.899 Other long term (current) drug therapy
CPT/HCPCS: 80053; 85652; 85025; 86140

== ENCOUNTER 2021-11-13 08:21 | Outpatient (CLI) | payer MEDICARE, SELFPAY ==
--- NOTE | 2021-11-13 08:15 | RT.EKG_ITS ---
APPROVED REPORT Exam: Resting ECG Reason for Exam: SVT Patient Location: O HR:71 bpm ECG Measurements Heart Rate 71 AXIS NC 150 P 26 QRSd 102 QRS -32 QT 416 T 3 QTc 453 Conclusion Sinus rhythm...normal P axis, V-rate 50- 99 Left axis deviation...QRS axis (-30,-90) Low voltage, precordial leads...precordial leads <1.0mV Poor R wave progression
== END 2021-11-13 08:22 | disposition home or self-care (01) ==
LOC: DI.CARD 08:22
PROVIDERS: PCP Student in an Organized Health Care Education/Training Program; Visit Provider Internal Medicine Cardiovascular Disease
DX: I47.1 Supraventricular tachycardia (principal); I44.4 Left anterior fascicular block
CPT/HCPCS: 93010

== ENCOUNTER → 2021-11-13 13:07 | Outpatient (BNVA) | payer MEDICARE, SELFPAY | PROVIDERS: PCP Nurse Practitioner Family; Referring Provider Student in an Organized Health Care Education/Training Program; Visit Provider Internal Medicine Cardiovascular Disease | DX: I47.1 Supraventricular tachycardia (principal); R00.2 Palpitations | CPT/HCPCS: 93005; 99203; 99214 ==

== ENCOUNTER → 2021-12-13 01:34 | Outpatient (CLI) | payer MEDICARE, SELFPAY ==
--- NOTE | 2021-12-13 | DI.MRI_ITS ---
Exam(s) MR CERVICAL SPINE WO EXAM: MR CERVICAL SPINE WO CLINICAL HISTORY: CERVICAL RADICULOPATHY M54.12 C SPINE PAIN M54.2 L SPINAL FUSION Z98.1. TECHNIQUE: Multiplanar multisequence MRI was performed. COMPARISON: MR MR CERVICAL SPINE WO from 09/21/2019 MR MR LUMBAR SPINE WO from 12/13/2021 FINDINGS: MR examination of the cervical spine was performed according to the usual protocol. There is no significant bony signal abnormality seen. Images obtained through the posterior fossa are unremarkable. There are no significant findings at C2-3, C3-4, or C4-5. There is no evidence of disc herniation, c entral canal spinal stenosis, or neural foramina stenosis at these levels. At C 5 6, there is moderate prominence of the disc osteophyte complex without a focal disc herniation . There is bilateral neural foraminal stenosis. There is no central canal spinal stenosis. At C6-7, there is moderate prominence of the disc osteophyte complex without evidence of a focal disc herniation. There is mild central canal spinal stenosis and bilateral neural foraminal stenosis. C7-T1 level is not ideally visualized but there is no gross abnormality of the spinal canal at this l evel. There appears to be prominence of the disc osteophyte complex at T1-2, T2-3, and T3-4 levels s een on the sagittal images. Spinal cord shows normal diameter and normal signal throughout. IMPRESSION: Mild central canal spinal stenosis at C6-7 without evidence of cord compression. Bilateral neural foraminal narrowing at C5-6 and C6-7. There is been little interval change in appearance in comparison with prior MR of August 2019. DATA REPOSITORY:
--- NOTE | 2021-12-13 | DI.RAD_ITS ---
Exam(s) XR LUMBAR SPINE COMPLETE EXAM: XR LUMBAR SPINE COMPLETE CLINICAL HISTORY: SPINAL STENOSIS LUMBAR REGION M48.061 TECHNIQUE: COMPARISON: No exams were available for comparison FINDINGS: Five views were obtained. Prior laminectomy with Kruse rods in place from L3 through S1. No gr oss bony erosive or destructive lesion. Kruse rods appear well placed. Disc space loss of heig ht and vacuum disc phenomenon noted at L2-3 level consistent with disc degeneration. No other signif icant abnormality seen. IMPRESSION: RADIATION DOSE DELIVERED: Total DLP
--- NOTE | 2021-12-13 | DI.MRI_ITS ---
Exam(s) MR LUMBAR SPINE WO EXAM: MR LUMBAR SPINE WO CLINICAL HISTORY: LUMBAR SPINAL FUSION Z98.1 LUMBAR STENOSIS M48.062 M35.01 L40.50 M54.2. TECHNIQUE: Multiplanar multisequence MRI was performed. COMPARISON: No exams were available for comparison FINDINGS: MR examination of the lumbosacral spine was performed according to the usual protocol. There are adis ateral Kruse rods in place from L3 through S1. Spinal canal appears well maintained throughout this region. No significant bony signal abnormality seen. Note is made of an elongated fluid collection posterior to the spinal canal extending vertically from the L3-4 disc level to the level of the L5-S1 disc level. Sagittal stir images also show mildly inc reased signal suggesting edema in the posterior paraspinal musculature from L4 through S1, although t his may be due in part to chemical shift artifact. The the conus medullaris appears intact. No significant findings from the T10-T11 level through the T12-L1 level. No central canal cyst stenosis, neural foraminal stenosis, or disc herniations at thes e levels. At the L1-2 level, there is a mild disc bulge without evidence of disc herniation, central canal spin al stenosis, or neural foraminal stenosis. At L2-3, there is mild disc bulge. There are facet hypertrophic changes. There is mild central broderick l spinal stenosis with decreased AP diameter of the spinal canal at this level. No gross neural fora loida stenosis. At L3-4, L4-5, and L5-S1, spinal canal is of normal diameter. No neural foraminal stenosis. No disc herniation. IMPRESSION: Mild central canal spinal stenosis at L 2 3, above the level of the laminectomy and Kruse rods. Small vertically oriented fluid collection posterior to the spinal canal at the laminectomy levels. This is a nonspecific finding. DATA REPOSITORY:
--- NOTE | 2021-12-13 | DI.RAD_ITS ---
Exam(s) XR SACRUM COCCYX EXAM: XR SACRUM COCCYX CLINICAL HISTORY: SPINAL STENOSIS LUMBAR REGION M48.062 S/P LUMBAR SPINAL FUSION Z98.1 LOW TECHNIQUE: COMPARISON: No exams were available for comparison FINDINGS: Three views were obtained. Kruse rods are noted in the lower lumbar spine and sacrum. No gross sacrococcygeal bony abnormality seen. IMPRESSION: RADIATION DOSE DELIVERED: Total DLP
== END ==
PROVIDERS: PCP Nurse Practitioner Family; Visit Provider Internal Medicine Rheumatology
DX: L40.50 Arthropathic psoriasis, unspecified (principal); M35.01 Sjogren syndrome with keratoconjunctivitis; M48.062 Spinal stenosis, lumbar region with neurogenic claudication; Z98.1 Arthrodesis status; M54.2 Cervicalgia; M54.12 Radiculopathy, cervical region; M48.02 Spinal stenosis, cervical region
CPT/HCPCS: 72110; 72141; 72148; 72220

== ENCOUNTER → 2021-12-19 03:07 | Outpatient (CLI) | payer MEDICARE, SELFPAY ==
--- NOTE | 2021-12-19 | DI.MRI_ITS ---
Exam(s) MR THORACIC SPINE WO EXAM: MR THORACIC SPINE WO CLINICAL HISTORY: MID BACK PAIN,SPINAL STENOSIS,M48.062,H/O LUMBAR FUSION,Z98.1,M54.6. TECHNIQUE: Multiplanar multisequence MRI of the Thoracic spine was performed. COMPARISON: No exams were available for comparison FINDINGS: Bones: The vertebral body heights are well maintained. Alignment is satisfactory. The signal characte ristics are unremarkable. Cord: The thoracic cord is normal size and signal intensity. No intrinsic cord lesion is present. Discs: Please see below. Soft tissues: Normal. T1-2: No disc herniation or bulge is identified. No central spinal canal or neural foraminal stenosi s. T2-3: There is a mild diffuse disc bulge. No central spinal canal or neural foraminal stenosis. T4-5: There is a small central disc herniation. No central spinal canal or neural foraminal stenosis . T5-6: There is a mild diffuse disc bulge. No central spinal canal or neural foraminal stenosis. T6-7: There is a mild diffuse disc bulge. No central spinal canal or neural foraminal stenosis. T7-8: No disc herniation or bulge is identified. No central spinal canal or neural foraminal stenosis . T8-9: There is a mild eccentric disc bulge to the right. No central spinal canal or neural foraminal stenosis. T9-10: There is a mild diffuse disc bulge. No central spinal canal or neural foraminal stenosis. T10-11:No disc herniation or bulge is identified. No central spinal canal or neural foraminal stenosi s. T11-12: No disc herniation or bulge is identified. No central spinal canal or neural foraminal stenos is. T12-L1: No disc herniations or bulges are present. No central spinal canal or neural foraminal steno sis. IMPRESSION: 1. Multilevel diffuse disc bulges and small central disc herniation as described above. 2. No significant central spinal canal or neural foraminal stenosis is present. DATA REPOSITORY:
== END ==
PROVIDERS: PCP Nurse Practitioner Family; Visit Provider Internal Medicine Rheumatology
DX: M48.062 Spinal stenosis, lumbar region with neurogenic claudication (principal); Z98.1 Arthrodesis status; M51.24 Other intervertebral disc displacement, thoracic region; M51.34 Other intervertebral disc degeneration, thoracic region; G89.29 Other chronic pain
CPT/HCPCS: 72146

== ENCOUNTER → 2022-02-12 13:01 | Outpatient (BNVA) | payer MEDICARE, SELFPAY | PROVIDERS: PCP Nurse Practitioner Family; Referring Provider Nurse Practitioner Family; Visit Provider Internal Medicine Cardiovascular Disease | DX: R00.2 Palpitations (principal); I47.1 Supraventricular tachycardia | CPT/HCPCS: 99212 ==

== ENCOUNTER 2022-02-12 15:09 | Outpatient (REF) | payer MEDICARE, SELFPAY ==
[2022-02-12 19:42] LABS: HCT 37.4 % (36.0-46.0); HGB 12.2 g/dL (11.2-15.7); MCH 31.9 pg (27.0-33.0); MCHC 32.6 % (32.0-36.0); MCV 97.7 fL (80-95); MPV 9.7 fL (8.0-11.0); Platelet Count 383 10^3/uL (130-400); RBC 3.83 10^6/uL (3.93-5.22); RDW 14.2 % (11.7-14.6); RDW-SD 50.8 fL; WBC 4.74 10^3/uL (4.4-10.8)
[2022-02-12 19:57] LABS: Hemoglobin A1C 5.8 % (<5.7)
[2022-02-12 20:04] LABS: Calculated LDL 156 mg/dL (<100); Cholesterol 248 mg/dL (<200); HDL Cholesterol 50 mg/dL (40-60); Triglyceride 212 mg/dL (<150)
[2022-02-12 20:21] LABS: BUN 18 mg/dL (7-18); CREATININE 1.1 mg/dL (0.55-1.02); Calcium 9.2 mg/dL (8.5-10.1); Chloride 106 mmol/L (98-107); Estimated GFR 50.84 (mL/min/1.73m2); Glucose 117 mg/dL (74-106); Potassium 4.4 mmol/L (3.5-5.1); Sodium 141 mmol/L (136-145)
== END 2022-02-12 15:10 | disposition home or self-care (01) ==
LOC: NCHCN 15:09
PROVIDERS: PCP Nurse Practitioner Family; Visit Provider Nurse Practitioner Family
DX: E78.5 Hyperlipidemia, unspecified (principal); R73.09 Other abnormal glucose; N18.31 Chronic kidney disease, stage 3a
CPT/HCPCS: 80048; 80061; 85027; 83036; 85610

== ENCOUNTER 2022-02-13 19:36 | Outpatient (REF) | payer MEDICARE, SELFPAY ==
[2022-02-13 19:35] LABS: Prothrombin Time 10.2 sec (9.3-11.0)
== END 2022-02-13 19:37 | disposition home or self-care (01) ==
LOC: NCHCN 19:36
PROVIDERS: PCP Nurse Practitioner Family; Visit Provider Nurse Practitioner Family
DX: Z01.818 Encounter for other preprocedural examination (principal); I47.1 Supraventricular tachycardia
CPT/HCPCS: 85610

== ENCOUNTER 2022-02-19 03:09 | Outpatient (CLI) | payer MEDICARE, SELFPAY ==
[2022-02-19 10:49] LABS: Source Nasal/Nares
[2022-02-19 13:08] LABS: COVID-19 PCR Negative (Negative)
== END 2022-02-19 03:10 | disposition home or self-care (01) ==
LOC: LBO 03:09
PROVIDERS: PCP Nurse Practitioner Family; Visit Provider Neurological Surgery
DX: Z20.822 Contact with and (suspected) exposure to COVID-19 (principal); Z01.818 Encounter for other preprocedural examination
CPT/HCPCS: 87635; U0005

== ENCOUNTER 2022-04-24 01:57 | Outpatient (CLI) | payer MEDICARE, SELFPAY ==
[2022-04-24] MEDS: Gadoterate meglumine 20 ML VIAL IVP (13:05)
--- NOTE | 2022-04-24 13:30 | DI.MRI_ITS ---
Exam(s) MR LUMBAR SPINE WO/W EXAM: MR LUMBAR SPINE WO/W CLINICAL HISTORY: SPINAL STENOSIS WITH NEUROGENIC CLAUDICATION,M48.062. TECHNIQUE: Multiplanar multisequence MRI of the Lumbar spine was performed. Both pre and post contrast infused sequences were performed. Contrast injected was 20 mL Dotarem COMPARISON: CR XR LUMBAR SPINE COMPLETE from 12/13/2021 MR MR LUMBAR SPINE WO from 12/13/2021 MR MR THORACIC SPINE WO from 12/19/2021 FINDINGS: Again noted is posterior fusion hardware comprised of posterior fusion rods secured by bilateral intr apedicular screws at L3, L4, L5, and S1 levels. The relationship of this screws to the superior endp lates of the vertebral bodies is satisfactory. There are no screws extending into the intervertebral disc spaces. Also no evidence of surrounding bone edema to suggest significant loosening nor osteom yelitis. No discitis evident. No evidence of abnormal epidural fluid collection. The previously described vertically orientated fluid collection left of center behind L4 and L5 is ag ain noted, measuring 4.4 cm craniocaudal length by 0.8 cm AP by 1.2 cm wide. This is posterior to th e spinal canal/epidural space. There is signal abnormality and enhance in the posterior soft tissues including subcutaneous and musc ular layer along what is probably a course of interval surgery since the prior study 12/13/2021. How ever, there are no new definable distinct fluid collections. Conus medullaris is at normal level. There is no evidence of conus mass nor subjacent clumping of in trathecal nerve roots to suggest arachnoiditis. The distal thecal sac appears unremarkable.There is no evidence of Tarlov intrasacral cysts nor other significant findings within the sacral canal Bones:There are no fractures nor ominous osseous lesions in the lumbar vertebral bodies and visualize d sacrum. With respect to the individual levels... T12-L1: Unremarkable L1-2: Preserved disc height. Mild symmetrical broad annular bulging is noted, unchanged. the centr al canal dimensions are lower normal. There is no foraminal stenosis at this level. No significant facet arthropathy L2-3: This is one level above the fusion. Broad annular bulging is noted which extends into the gaby or of the exiting neural foramina bilaterally. There is moderate central spinal canal stenosis at th is level again noted due to annular bulging, and short AP dimensions of the pedicles.There is an cantwell ent of mild bilateral foraminal stenosis, similar to previous. Facet joints unchanged L3-4: Fused level. Preserved disc height and signal. No disc herniation. Central canal dimensions are lower normal. No foraminal stenosis. No prominent facet hypertrophy. L4-5: There is a disc space device at this level which is in satisfactory position. No evidence of d isc herniation or central canal stenosis. No significant foraminal stenosis. L5-S1: Increased signal is again noted in the posterior aspect disc space at this level, this best se en on T2 sagittal images and unchanged from the prior study. Less evident on the STIR sequence. The re is no new disc herniation at this level. Central canal dimensions are within normal limits. Ther e is no evidence of significant foraminal stenosis on the right side at this level. There is mild le ft-sided foraminal stenosis. IMPRESSION: 1. Compared to the prior MRI scan 12/13/2021 there is increased signal abnormality in the posterior s ubcutaneous fat and muscle layers, most probably related to interval surgery. There are no new abnor mal fluid collections but the previously described vertically orientated fluid collection left of diana ter and posterior to the spinal canal posterior to L4 and L5 is again noted measuring 4.4 cm cranioca udal by 0.8 cm AP x 1.2 cm wide, again noted to be posterior to the spinal canal/epidural space. 2. There is mild-moderate central spinal canal stenosis at L2-3 level, this being 1 level above the f usion. This finding is unchanged. It is due to annular bulging, and short AP dimensions of the pedi cles. 3. No evidence of significant change in the appearance of the hardware and no evidence of the osteomy elitis nor discitis. DATA REPOSITORY:
== END 2022-04-24 02:17 ==
LOC: DI 01:57
PROVIDERS: PCP Nurse Practitioner Family; Visit Provider Neurological Surgery
DX: M48.062 Spinal stenosis, lumbar region with neurogenic claudication (principal); Z98.1 Arthrodesis status
CPT/HCPCS: 72158